=== PATIENT | male | born 1965 | race African-American/Black ===

== ENCOUNTER 2023-02-07 10:25 | Emergency (ER) | payer OTHER ==
[~2023-02-07] VITALS: Ht 177.8 cm; Wt 102.1 kg
[2023-02-07] MEDS ORDERED: GLIPIZIDE XL10 MG PO (11:08)
[2023-02-07] MEDS ORDERED: GLUMETZA1000 MG PO (11:08)
== END 2023-02-07 14:36 | disposition home or self-care (01) ==
LOC: ER 10:25
DX: E11.65 Type 2 diabetes mellitus with hyperglycemia (principal); Z79.84 Long term (current) use of oral hypoglycemic drugs; I10 Essential (primary) hypertension; Z20.822 Contact with and (suspected) exposure to COVID-19